=== PATIENT | female | born 1990 | race African-American/Black ===

== ENCOUNTER 2017-04-27 14:10 | Emergency (ER) | payer OTHER ==
[~2017-04-27] VITALS: Ht 157.5 cm; Wt 49.1 kg
[2017-04-27 15:16] LABS: APPEARANCE,URINE CLOUDY (CLEAR); GLUCOSE, URINE (UA) NEGATIVE (NEGATIVE); KETONES,URINE NEGATIVE (NEGATIVE); LEUKOCYTE ESTERASE ,URINE MODERATE (NEGATIVE); OCCULT BLOOD,URINE NEGATIVE (NEGATIVE); PROTEIN,URINE NEGATIVE (NEGATIVE)
[2017-04-27 15:17] LABS: ADD UA MICROSCOPIC YES
[2017-04-27 15:49] LABS: RBC,URINE 0-2 /HPF (0-2); SQUAMOUS EPITHELIAL CELL,UR Moderate /LPF (None Seen)
[2017-04-27 16:28] VITALS: BP 109/59
== END 2017-04-27 16:30 | disposition home or self-care (01) ==
LOC: EMS 14:11
DX: N39.0 Urinary tract infection, site not specified (principal)
CPT/HCPCS: 81025; 87086; 99284